=== PATIENT | male | born 1995 | race Caucasian/White ===

== ENCOUNTER 2017-10-15 23:24 | Emergency (ER) | payer SELFPAY ==
[~2017-10-15] VITALS: Ht 167.6 cm; Wt 71.7 kg
[~2017-10-15 23:24] MED LIST: AMOX500T PO; HYDR-3533 PO; NAPR500 PO
[2017-10-15 23:37] VITALS: BP 175/92; PULSE 71; RESP 18; TEMP 97.7; O2SAT 98
[2017-10-16] MEDS ORDERED: RESP: ALBUTEROL 2.5 MG/IPRATROPIUM 0.5 MG NEB (SCH) NEB ONE (00:30)
[2017-10-16] MEDS ORDERED: KETOROLAC TROMETHAMINE 60 MG/2 ML (IM) VIAL IM ONE (00:30)
[2017-10-16] MEDS ORDERED: ONDANSETRON ODT 4 MG TAB PO ONE (00:30)
[2017-10-16 00:51] VITALS: BP 145/88; PULSE 69; RESP 18; O2SAT 96
--- NOTE | 2017-10-16 01:02 | RADRPT ---
EXAM DATE/TIME: 10/16/2017 00:36 [place] COMPARISON: No previous studies available for comparison. INDICATIONS : Shortness of breath. MEDICAL HISTORY : None. SURGICAL HISTORY : None. ENCOUNTER: Initial ACUITY: 1 day PAIN SCORE: 5/10 LOCATION: Bilateral chest FINDINGS: A single view of the chest demonstrates the lungs to be symmetrically aerated without evidence of mas s, infiltrate or effusion. The cardiomediastinal contours are unremarkable. Osseous structures are intact. CONCLUSION: 1. No acute cardiopulmonary disease. Valentin Dill MD on October 16, 2017 at 1:01 Board Certified Radiologist. This report was verified electronically.
[2017-10-16] MEDS ORDERED: ZOFR4TAB3 SL (01:15)
[2017-10-16] MEDS ORDERED: VENTAER INH (01:15)
[2017-10-16] MEDS ORDERED: PENI500T PO (01:15)
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
[2017-10-16 01:29] VITALS: RESP 18
[2017-10-16] MEDS ORDERED: PENICILLIN V POTASSIUM 500 MG TAB PO ONE (01:30)
== END 2017-10-16 01:39 | disposition home or self-care (01) ==
LOC: PHED 23:24
DX: K08.89 Other specified disorders of teeth and supporting structures (principal); J40 Bronchitis, not specified as acute or chronic; R11.10 Vomiting, unspecified; Z72.0 Tobacco use
CPT/HCPCS: 71045; 94664; 96372; 99284; J1885